=== PATIENT | female | born 1965 | race Caucasian/White ===

== ENCOUNTER → 2016-04-29 | Outpatient (CLI) | payer OTHER | LOC: EXRD 14:08 | DX: M25.552 Pain in left hip (principal) | CPT/HCPCS: 73502 ==

== ENCOUNTER → 2016-05-11 | Outpatient (CLI) | payer OTHER | LOC: EXRD 14:54 | DX: M54.5 Low back pain (principal); M54.30 Sciatica, unspecified side; M47.816 Spondylosis without myelopathy or radiculopathy, lumbar region | CPT/HCPCS: 72100 ==

== ENCOUNTER 2016-05-17 14:42 | Emergency (ER) | payer OTHER | END 2016-05-17 16:38 | disposition home or self-care (01) | LOC: ER1 14:42 | DX: M54.32 Sciatica, left side (principal); F32.9 Major depressive disorder, single episode, unspecified; F17.210 Nicotine dependence, cigarettes, uncomplicated; Z79.899 Other long term (current) drug therapy | CPT/HCPCS: 96372; 99283; J1100; J1885 ==

== ENCOUNTER → 2020-02-15 | Outpatient (CLI) | payer OTHER ==
[~2020-02-15] MED LIST: AMLODIPINE BESYL5 MG PO; AMOXICILLIN500 MG PO; BENTYL 20MG TAB20 MG PO; BENZONATATE200 MG PO; CITALOPRAM HBR40 MG PO; CYCLOBENZAPRINE5 MG PO; ESTRADIOL1 EAC4 TD; IBUPROFEN800 MG PO; LEVOTHYROXINE75 MCG PO; MUCUS RELIEF600 MG PO; OMEPRAZOLE20 MG PO; PERCOCET 10-321 EACH PO
[2020-02-15 10:06] LABS: HEMOGLOBIN 12.8 gm/dl (12.3-15.3); RED BLOOD COUNT 4.49 M/UL (4.00-5.10); WHITE BLOOD COUNT 6.8 K/UL (4.5-11.0)
[2020-02-15 10:13] LABS: BUN/CREATININE RATIO 36 (0-10)
== END ==
LOC: OPSV2 08:00 → EDSTATUS 08:00 → OPSV2 08:38
PROVIDERS: Orthopaedic Surgery
DX: Z01.818 Encounter for other preprocedural examination (principal); M87.9 Osteonecrosis, unspecified; R60.0 Localized edema
CPT/HCPCS: 36415; 71046; 80048; 82040; 84155; 85025; 85610; 85652; 85730; 86140; 93005

== ENCOUNTER → 2020-02-26 | Outpatient (CLI) | payer OTHER ==
[2020-02-26 15:00] LABS: BUN/CREATININE RATIO 34 (0-10)
== END ==
LOC: LAB 13:42
PROVIDERS: Orthopaedic Surgery
DX: Z53.8 Procedure and treatment not carried out for other reasons (principal)
CPT/HCPCS: 36415; 80048; 86850; 86900; 86901

== ENCOUNTER 2020-02-27 06:37 | Inpatient (IN) | payer OTHER ==
[~2020-02-27] VITALS: Ht 154.9 cm; Wt 59.0 kg
[2020-02-27] MEDS ORDERED: AMLODIPINE BESYL5 MG PO (07:14)
[2020-02-27] MEDS ORDERED: CITALOPRAM HBR40 MG PO (07:15)
[2020-02-27] MEDS ORDERED: ESTRADIOL1 EAC4 TD (07:16)
[2020-02-27] MEDS ORDERED: BENTYL 20MG TAB20 MG PO (07:16)
[2020-02-27] MEDS ORDERED: CYCLOBENZAPRINE5 MG PO (07:16)
[2020-02-27] MEDS ORDERED: IBUPROFEN800 MG PO (07:17)
[2020-02-27] MEDS ORDERED: LEVOTHYROXINE75 MCG PO (07:17)
[2020-02-27] MEDS ORDERED: AMOXICILLIN500 MG PO (07:23)
[2020-02-27] MEDS ORDERED: OMEPRAZOLE20 MG PO (07:23)
[2020-02-27] MEDS ORDERED: MUCUS RELIEF600 MG PO (07:24)
[2020-02-27] MEDS ORDERED: BENZONATATE200 MG PO (07:24)
[2020-02-27] MEDS ORDERED: PERCOCET 10-321 EACH PO ×2 (12:21→17:08)
[2020-02-27 19:27] LABS: HEMOGLOBIN 9.4 gm/dl (12.3-15.3)
--- NOTE | 2020-02-27 22:31 | NUR ---
1999- APPLIED POLAR ICE BILATERALLY TO HIPS. APPLIED KNEE HIGH SCDS TO BOTH LOWER LEGS.
[2020-02-28 05:16] LABS: BUN/CREATININE RATIO 22 (0-10)
[2020-02-29 05:46] LABS: RED BLOOD COUNT 2.7 M/UL (4.00-5.10); WHITE BLOOD COUNT 14.3 K/UL (4.5-11.0)
[2020-02-29 06:12] LABS: BUN/CREATININE RATIO 20 (0-10)
[2020-03-01 06:45] LABS: RED BLOOD COUNT 2.43 M/UL (4.00-5.10); WHITE BLOOD COUNT 12.2 K/UL (4.5-11.0)
[2020-03-01 06:52] LABS: HEMOGLOBIN 6.6 gm/dl (12.3-15.3)
[2020-03-01 07:19] LABS: BUN/CREATININE RATIO 11 (0-10)
[2020-03-01 18:29] LABS: HEMOGLOBIN 8.9 gm/dl (12.3-15.3)
[2020-03-02 07:36] LABS: HEMOGLOBIN 9.4 gm/dl (12.3-15.3); WHITE BLOOD COUNT 9.5 K/UL (4.5-11.0)
[2020-03-02 07:37] LABS: RED BLOOD COUNT 3.23 M/UL (4.00-5.10)
[2020-03-02 07:53] LABS: BUN/CREATININE RATIO 11 (0-10)
[2020-03-03 06:01] LABS: HEMOGLOBIN 9.1 gm/dl (12.3-15.3)
[2020-03-03 06:19] LABS: BUN/CREATININE RATIO 21 (0-10)
--- NOTE | 2020-03-03 13:01 | NUR ---
REPORT GIVEN TO [facility]
== END 2020-03-03 14:59 | disposition home health service (06) | DRG 462 ==
LOC: ZOBSOF 06:37 → CCU 18:52 → M/S 02-28 17:07
PROVIDERS: Internal Medicine; ADMIT Orthopaedic Surgery
PROC: 0SR904A Replacement of Right Hip Joint with Ceramic on Polyethylene Synthetic Substitute, Uncemented, Open Approach (ICD-10-PCS; 2020-02-27)
PROC: 0SRB04A Replacement of Left Hip Joint with Ceramic on Polyethylene Synthetic Substitute, Uncemented, Open Approach (ICD-10-PCS; principal; 2020-02-27 11:30)
PROC: 30233H1 Transfusion of Nonautologous Whole Blood into Peripheral Vein, Percutaneous Approach (ICD-10-PCS; 2020-03-01)
DX: M87.9 Osteonecrosis, unspecified (principal); D62 Acute posthemorrhagic anemia; I10 Essential (primary) hypertension; B19.20 Unspecified viral hepatitis C without hepatic coma; G62.9 Polyneuropathy, unspecified; K21.9 Gastro-esophageal reflux disease without esophagitis; Z20.822 Contact with and (suspected) exposure to COVID-19; E03.9 Hypothyroidism, unspecified; Z90.710 Acquired absence of both cervix and uterus; Z88.8 Allergy status to other drugs, medicaments and biological substances; F17.210 Nicotine dependence, cigarettes, uncomplicated; F10.21 Alcohol dependence, in remission; Z80.9 Family history of malignant neoplasm, unspecified; Z80.3 Family history of malignant neoplasm of breast; K74.60 Unspecified cirrhosis of liver; K76.0 Fatty (change of) liver, not elsewhere classified; E87.6 Hypokalemia
CPT/HCPCS: 36415; 36430; 72170; 73522; 76000; 80048; 83735; 85014; 85018; 85025; 85027; 86850; 86900; 86901; 86920; 97110-GP-CQ; 97116-GP-CQ; 97163; 97166; 97530-GP-CQ; 97535; C1776; J0690; J1644; J1885; J2001; J2270; J2405; J2704; J2710; J2795; J3010; J3370; J7030; J7040; J7050; J7120; P9016

== ENCOUNTER → 2021-04-17 | Outpatient (CLI) | payer OTHER | LOC: RAD 09:27 | DX: M25.552 Pain in left hip (principal); M25.551 Pain in right hip; M79.672 Pain in left foot; M79.671 Pain in right foot; M25.512 Pain in left shoulder; M25.511 Pain in right shoulder; M54.9 Dorsalgia, unspecified; R05.9 Cough, unspecified | CPT/HCPCS: 71046; 72050; 72072; 72110; 73030; 73522; 73630 ==